=== PATIENT | male | born 1945 | race Caucasian/White ===

== ENCOUNTER 2022-05-02 10:04 | Inpatient (IN) | payer BC, MEDICAID ==
[~2022-05-02] VITALS: Ht 167.6 cm; Wt 81.2 kg
[2022-05-02] MEDS ORDERED: BACITRACIN ZINC OINT UDPKT TOP ONE (10:30)
[2022-05-02] MEDS ORDERED: TETANUS, DIPHTHERIA, PERTUSSIS VAC/PF 0.5ML (>10YR OLD) IM ONE (10:30)
[2022-05-02] MEDS ORDERED: LIDOCAINE HCL/EPINEPHRINE 1%-EPI 1:100,000 20 ML VIAL INFIL ONE (10:30)
[2022-05-02] MEDS ORDERED: LIDOCAINE HCL/EPINEPHRINE 1%-EPI 1:100,000 10 ML VIAL INFIL NR (10:30)
[2022-05-02 10:45] LABS: BASOPHILS % 0.8 % (0.0-2.0); EOSINOPHILS % 4.2 % (0.0-5.0); HEMATOCRIT. 46.1 % (42.0-52.0); HEMOGLOBIN. 15.5 g/dL (14.0-18.0); MEAN CORPUSCULAR HEMOGLOBIN 30.6 pg (28.0-32.0); MEAN CORPUSCULAR VOLUME 90.8 fL (80.0-94.0); MEAN PLATELET VOLUME 8.4 fl (7.4-10.4); MONOCYTES % 6.4 % (2.0-8.0); NEUTROPHILS % 58.6 % (40.0-76.0); PLATELET 175 x1000/uL (130-400); RED BLOOD CELL COUNT 5.07 mill/uL (4.7-6.1); RED CELL DISTRIBUTION WIDTH 13.8 % (11.6-14.6)
[2022-05-02] MEDS ORDERED: ONDANSETRON HCL 4MG/2ML INJ IV ONE (10:45)
[2022-05-02] MEDS ORDERED: SODIUM CHLORIDE 0.9% 1,000 ML IV ONE (10:45)
[2022-05-02] MEDS ORDERED: MORPHINE SULFATE 4 MG/ML CPJ (NOT FOR IM USE) IV ONE (10:45)
[2022-05-02 10:46] LABS: CHLORIDE 108 mEq/L (98-107)
[2022-05-02 10:54] LABS: ETHANOL BLOOD < 10 mg/dL
[2022-05-02 14:11] LABS: CLARITY URINE CLEAR (CLEAR); COLOR URINE YELLOW (YELLOW); KETONES URINE NEGATIVE (NEGATIVE); LEUKOCYTE ESTERASE URINE NEGATIVE (NEGATIVE); NITRITE URINE NEGATIVE (NEGATIVE); OCCULT BLOOD URINE NEGATIVE (NEGATIVE); PROTEIN URINE TRACE (NEGATIVE); SPECIFIC GRAVITY URINE 1.018 (1.005-1.030); UROBILINOGEN URINE 0.2 E.U./dL (0.2-1.0)
[2022-05-02 14:27] LABS: *AMPHETAMINES SCREEN URINE NEGATIVE (NEGATIVE); *BARBITURATES SCREEN URINE NEGATIVE (NEGATIVE); *BENZODIAZEPINES SCREEN URINE NEGATIVE (NEGATIVE); *COCAINE SCREEN URINE NEGATIVE (NEGATIVE); CANNABINOID URINE SCREEN NEGATIVE (NEGATIVE); METHADONE URINE SCREEN NEGATIVE (NEGATIVE); OPIATES URINE SCREEN PRESUMTIVE POSITIVE (NEGATIVE); PHENCYCLIDINE URINE SCREEN NEGATIVE (NEGATIVE)
[2022-05-02 16:36] LABS: T4 FREE 0.98 ng/dL (0.76-1.46)
[2022-05-02 18:00] VITALS: BP_SYST 137; BP_SYST 138; BP_DIAS 67
[2022-05-02] MEDS ORDERED: DEXTROSE 50% WATER 50ML SYRINGE IV PRN (18:30)
[2022-05-02] MEDS ORDERED: TAMS-11 MT (18:32)
[2022-05-02] MEDS ORDERED: METF-416 PO (18:32)
[2022-05-02] MEDS ORDERED: GLIP10TA10 MT (18:32)
[2022-05-02] MEDS: BLOOD SUGAR DIAGNOSTIC STRIP TEST SCH ×2 (18:57→21:32)
[2022-05-02] MEDS: ACETAMINOPHEN 325MG TABLET PO PRN (19:04)
[2022-05-02] MEDS: INSULIN LISPRO 100 UNITS/ML SUBCUT SCH ×2 (19:05→21:33)
[2022-05-02 20:00] VITALS: BP_SYST 121; BP_SYST 153; BP_DIAS 63; BP_DIAS 67
[2022-05-02] MEDS ORDERED: ENOXAPARIN 40MG/0.4ML SYR SUBCUT SCH (20:00)
[2022-05-02] MEDS ORDERED: BLOOD SUGAR DIAGNOSTIC STRIP TEST SCH (21:00)
[2022-05-02] MEDS ORDERED: INSULIN LISPRO 100 UNITS/ML SUBCUT SCH (21:00)
[2022-05-02] MEDS ORDERED: PNEUMOCOCCAL 23-VAL P-SAC VAC 0.5 ML IM ONE (21:00)
[2022-05-03] VITALS: BP 122/62
[2022-05-03] MEDS: HYDROCODONE/ACETAMINOPHEN 5/325MG TABLET PO PRN ×2 (00:27→07:58)
[2022-05-03] MEDS ORDERED: NALOXONE HCL 0.4MG/ML VIAL IV PRN (00:30)
[2022-05-03 04:00] VITALS: BP 130/64
[2022-05-03] MEDS: BLOOD SUGAR DIAGNOSTIC STRIP TEST SCH (06:37)
[2022-05-03 07:52] LABS: BASOPHILS % 0.7 % (0.0-2.0); EOSINOPHILS % 2.5 % (0.0-5.0); HEMATOCRIT. 43.1 % (42.0-52.0); HEMOGLOBIN. 14.5 g/dL (14.0-18.0); LYMPHOCYTES % 18.8 % (20.0-50.0); MEAN CORPUSCULAR HEMOGLOBIN 30.6 pg (28.0-32.0); MEAN CORPUSCULAR VOLUME 91.2 fL (80.0-94.0); MONOCYTES % 6.5 % (2.0-8.0); NEUTROPHILS % 71.5 % (40.0-76.0); PLATELET 159 x1000/uL (130-400); RED BLOOD CELL COUNT 4.73 mill/uL (4.7-6.1); RED CELL DISTRIBUTION WIDTH 13.9 % (11.6-14.6)
[2022-05-03 08:00] VITALS: BP 146/65
[2022-05-03] MEDS: INSULIN LISPRO 100 UNITS/ML SUBCUT SCH (08:40)
[2022-05-03] MEDS ORDERED: TAMSULOSIN HCL 0.4MG SR CAPSULE PO SCH (09:00)
[2022-05-03] MEDS ORDERED: LEVOFLOXACIN 250MG TABLET PO SCH (11:00)
[2022-05-03 11:30] VITALS: BP 140/70
[2022-05-03] MEDS: ACETAMINOPHEN 325MG TABLET PO PRN (11:37)
== END 2022-05-03 12:56 | disposition left against medical advice (07) | DRG 74 ==
LOC: ER 10:04 → 6WST 14:51 → EDBEDREQ 14:55 → EDBEDREQTM 14:55 → ENRESERV 15:32
PROVIDERS: ADMIT Internal Medicine; ATTEND Internal Medicine
PROC: 0HQ0XZZ Repair Scalp Skin, External Approach (ICD-10-PCS; principal; 2022-05-02)
DX: G90.8 Other disorders of autonomic nervous system (principal); S01.01XA Laceration without foreign body of scalp, initial encounter; E11.9 Type 2 diabetes mellitus without complications; I25.10 Atherosclerotic heart disease of native coronary artery without angina pectoris; I10 Essential (primary) hypertension; N40.0 Benign prostatic hyperplasia without lower urinary tract symptoms; F10.129 Alcohol abuse with intoxication, unspecified; R79.89 Other specified abnormal findings of blood chemistry; E78.5 Hyperlipidemia, unspecified; Z53.29 Procedure and treatment not carried out because of patient's decision for other reasons; Z95.1 Presence of aortocoronary bypass graft; Z91.81 History of falling; W11.XXXA Fall on and from ladder, initial encounter; Y93.89 Activity, other specified; Y92.89 Other specified places as the place of occurrence of the external cause; Y99.8 Other external cause status
CPT/HCPCS: 36415; 71045; 72170; 73030; 73110; 73562; 80048; 80053; 80061; 80305; 80320; 81003; 82962; 83036; 83880; 84439; 84443; 84481; 84484; 85025; 85379; 90715; 93005; 93306; 93970; 99285; J1650; J1815; J2270; J2405; J3490; J7030; G0480

== ENCOUNTER 2024-10-21 09:51 | Emergency (ER) | payer MEDICARE, MEDICAID ==
[~2024-10-21] VITALS: Ht 177.8 cm; Wt 90.0 kg
[~2024-10-21 09:51] MED LIST: GLIP10TA17 MT; METF-416 PO; TAMS-11 MT
[2024-10-21 09:57] VITALS: O2SAT 100
[2024-10-21] MEDS: ACETAMINOPHEN 325MG TABLET PO ONE (10:49)
[2024-10-21 10:50] VITALS: TEMP 37.1
[2024-10-21] MEDS ORDERED: TOPUD PO (12:31)
[2024-10-21 14:04] VITALS: BP 134/52; PULSE 57; RESP 15; O2SAT 99
== END 2024-10-21 14:09 | disposition home or self-care (01) ==
LOC: ER 09:51
DX: M79.18 Myalgia, other site (principal); E11.9 Type 2 diabetes mellitus without complications; M17.11 Unilateral primary osteoarthritis, right knee; Z79.84 Long term (current) use of oral hypoglycemic drugs
CPT/HCPCS: 73030; 73552; 73590; 99284